=== PATIENT | male | born 1995 | race Caucasian/White ===

== ENCOUNTER → 2017-08-04 | Outpatient (CLI) | payer OTHER ==
--- NOTE | 2017-08-04 16:31 | REP ---
Clinical: Dyspnea . Comparison: None . Technique: PA and lateral. Findings: The mediastinum and cardiac silhouette are normal. Coarsened interstitial markings may reflect bronchitis or reactive airway disease. No focal acute consolidation, effusion, or pneumothorax. The skeletal structures are intact and normal. Impression: 1. No acute cardiopulmonary process. 2. Cannot exclude bronchitis or reactive airway disease. Signed by James Sutton MD 08/04/2017 04:23 P
[2017-08-04 17:49] LABS: BASO # 0.1 10^3/uL (0.0-0.2); BASO % 0.7 % (0.0-1.0); EOS # 0.2 10^3/uL (0.0-0.50); EOS % 2.9 % (0.0-3.0); IMMATURE GRANULOCYTE % 0.3 % (0-0); LYMPH # 1.8 10^3/uL (1.5-6.5); LYMPH % 23.9 % (24.0-44.0); MEAN CORPUSCULAR HEMOGLOBIN 27.8 pg (27.0-33.0); MEAN CORPUSCULAR HGB CONC 32.8 g/dl (32.0-36.5); MEAN CORPUSCULAR VOLUME 84.6 fl (80.0-96.0); MONO # 0.7 10^3/uL (0.0-0.8); MONO % 9.8 % (0.0-5.0); NEUTROPHILS # 4.7 10^3/uL (1.8-7.7); NEUTROPHILS % 62.4 % (36.0-66.0); PLATELET COUNT, AUTOMATED 279 10^3/uL (150-450); WHITE BLOOD COUNT 7.5 10^3/uL (4.0-10.0)
[2017-08-04 18:58] LABS: ALBUMIN 4.1 GM/DL (3.2-5.2); ALBUMIN/GLOBULIN RATIO 1.24 (1.00-1.93); ALKALINE PHOSPHATASE 92 U/L (45-117); ALT/SGPT 37 U/L (12-78); ANION GAP 6 MEQ/L (8-16); AST/SGOT 22 U/L (7-37); BILIRUBIN,TOTAL 0.6 MG/DL (0.2-1.0); BLOOD UREA NITROGEN 13 MG/DL (7-18); CALCIUM LEVEL 8.8 MG/DL (8.5-10.1); CARBON DIOXIDE LEVEL 33 MEQ/L (21-32); CHLORIDE LEVEL 104 MEQ/L (98-107); CREATININE FOR GFR 0.94 MG/DL (0.70-1.30); FREE T4 0.93 NG/DL (0.76-1.46); GLOMERULAR FILTRATION RATE > 60.0 (>60); GLUCOSE, FASTING 98 MG/DL (70-105); POTASSIUM SERUM 3.9 MEQ/L (3.5-5.1); SODIUM LEVEL 143 MEQ/L (136-145); TOTAL PROTEIN 7.4 GM/DL (6.4-8.2)
== END ==
LOC: M WUC 16:09
PROVIDERS: ATTEND Physician Assistant
DX: R07.1 Chest pain on breathing (principal)

== ENCOUNTER → 2018-05-28 | Outpatient (REF) | payer OTHER | LOC: M SMT 13:27 | DX: Z30.2 Encounter for sterilization (principal) | CPT/HCPCS: 88302 ==

== ENCOUNTER 2021-02-28 10:22 | Emergency (ER) | payer OTHER ==
[~2021-02-28] VITALS: Ht 180.3 cm; Wt 114.8 kg
--- NOTE | 2021-02-28 11:32 | REP ---
INDICATION: testicular pain. COMPARISON: None. TECHNIQUE: Standard scrotal sonography with color flow and duplex Doppler interrogation FINDINGS: Sonographic evaluation shows the right testis 4 x 2.3 x 2.6 cm with the left 4.4 x 2.1 x 2.3 cm. Both testes are homogeneous in echotexture and with no calcification, mass or focal lesion. Symmetric blood flow on color imaging. Doppler tracing shows normal resistive index 0.66 on the right and 0.55 in the left testis. The epididymal head on the right has a CC diameter 7.7 mm and on the left 10 mm. There is prominence of a blood flow on color imaging and enlargement of the epididymal tail on the right. There is no evidence of hydrocele. IMPRESSION: 1. Enlargement of the epididymal tail on the right with increased flow suggesting possible epididymitis. However, the right testis itself was normal and the bilateral testes are symmetric and homogeneous with normal blood flow. No torsion. No evidence of hydrocele 2. Epididymal heads symmetric and without abnormality. No other significant finding. <Electronically signed by Ady Miller > 02/28/21 [id number]
[2021-02-28] MEDS ORDERED: DOXY1CAP62 PO (12:01)
[2021-02-28] MEDS ORDERED: IBUP80TA PO (12:06)
[2021-02-28 12:13] VITALS: BP 136/86
== END 2021-02-28 12:29 | disposition home or self-care (01) ==
LOC: M ED 10:22
DX: N45.1 Epididymitis (principal); Z88.0 Allergy status to penicillin